=== PATIENT | female | born 1970 ===

== ENCOUNTER 2021-12-30 09:15 | Inpatient (IN) | payer OTHER ==
[~2021-12-30] VITALS: Ht 172.7 cm; Wt 108.9 kg
[~2021-12-30 09:15] MED LIST: SINGULAIR 10MG10 MG
[2022-01-01] MEDS ORDERED: SINGULAIR 10MG10 MG PO (07:21)
[2022-01-01] MEDS ORDERED: LOSARTAN POTASS50 MG PO (07:21)
[2022-01-01] MEDS ORDERED: METFORMIN HCL500 MG PO (07:22)
[2022-01-01] MEDS ORDERED: METHYLDOPA HCT PO (07:23)
[2022-01-03] MEDS ORDERED: PERCOCET 5-3251 EACH PO (09:41)
== END 2022-01-03 10:52 | disposition home or self-care (01) | DRG 743 ==
LOC: O/R 01-01 05:40 → OB/GYN 01-01 09:15
PROVIDERS: ADMIT Specialist; ATTEND Specialist
PROC: 0UT70ZZ Resection of Bilateral Fallopian Tubes, Open Approach (ICD-10-PCS; 2022-01-01)
PROC: 0UT20ZZ Resection of Bilateral Ovaries, Open Approach (ICD-10-PCS; 2022-01-01)
PROC: 0UT90ZZ Resection of Uterus, Open Approach (ICD-10-PCS; principal; 2022-01-01 10:15)
DX: D25.1 Intramural leiomyoma of uterus (principal); N83.12 Corpus luteum cyst of left ovary; N83.292 Other ovarian cyst, left side; N72 Inflammatory disease of cervix uteri; Z20.822 Contact with and (suspected) exposure to COVID-19